=== PATIENT | female | born 1955 | race Caucasian/White ===

== ENCOUNTER → 2020-08-09 | Outpatient (CLI) | payer MEDICARE, MEDICAID ==
[~2020-08-09] MED LIST: APIX5TAB PO; IBUP-2077 PO; MEMA28CA PO; OMEP20CA12 PO; SENN-187 PO; SIMV-261 PO
== END | disposition home or self-care (01) ==
LOC: SRCNTR 12:39
PROVIDERS: ATTEND Internal Medicine Critical Care Medicine
DX: G47.33 Obstructive sleep apnea (adult) (pediatric) (principal); I50.9 Heart failure, unspecified; J90 Pleural effusion, not elsewhere classified; R13.10 Dysphagia, unspecified; D75.89 Other specified diseases of blood and blood-forming organs
CPT/HCPCS: Q3014

== ENCOUNTER → 2020-08-26 | Outpatient (CLI) | payer MEDICARE, MEDICAID | END | disposition home or self-care (01) | LOC: SRCNTR 16:19 | PROVIDERS: ATTEND Internal Medicine Critical Care Medicine | DX: G47.33 Obstructive sleep apnea (adult) (pediatric) (principal); I50.9 Heart failure, unspecified; I26.99 Other pulmonary embolism without acute cor pulmonale; D75.89 Other specified diseases of blood and blood-forming organs; Q90.9 Down syndrome, unspecified; R13.10 Dysphagia, unspecified; N20.1 Calculus of ureter | CPT/HCPCS: Q3014 ==

== ENCOUNTER → 2020-09-20 | Outpatient (CLI) | payer MEDICARE, MEDICAID | END | disposition home or self-care (01) | LOC: SRCNTR 12:27 | PROVIDERS: ATTEND Internal Medicine Critical Care Medicine | DX: J90 Pleural effusion, not elsewhere classified (principal); I50.9 Heart failure, unspecified; D75.89 Other specified diseases of blood and blood-forming organs; Q90.9 Down syndrome, unspecified; G47.33 Obstructive sleep apnea (adult) (pediatric) | CPT/HCPCS: Q3014 ==